=== PATIENT | female | born 1965 | race Caucasian/White ===

== ENCOUNTER 2017-01-30 09:01 | Day surgery (SDC) | payer BC ==
[~2017-01-30] VITALS: Ht 157.5 cm; Wt 92.3 kg
[~2017-01-30 09:01] MED LIST: IBUP200C11 PO; NAPR250T PO; [UNRECOGNIZED DRUG - OTHER]
[2017-01-30 09:46] VITALS: Ht 157.5 cm; Wt 92.3 kg
[2017-01-30] MEDS ORDERED: BENTYL (10:10)
[2017-01-30] MEDS ORDERED: NORCO PO (10:10)
[2017-01-30] MEDS ORDERED: IBUPROFEN PO (10:10)
[2017-01-30] MEDS ORDERED: OMEP20CA16 PO (10:10)
[2017-01-30] MEDS ORDERED: METF500T4 PO (10:10)
[2017-01-30] MEDS ORDERED: VALS40TA2 PO (10:10)
[2017-01-30 10:13] VITALS: BP 134/93; PULSE 78; RESP 12
--- NOTE | 2017-01-30 10:52 | OPPN ---
Date/Time of Note Date/Time of Note DATE: 01/30/17 TIME: 10:50 Operative Report Preoperative Diagnosis Change in bowel habit History of rectal bleeding Postoperative Diagnosis Small sigmoid colon polyp was removed Internal hemorrhoids Operation/Procedure Performed Colonoscopy and biopsy Surgeon see signature line assistant controller None Anesthesia: MAC Estimated blood loss: none Transfusion Required none Specimen Sigmoid colon polyp biopsy Grafts/Implants none Complications none VANDANA NORMAN MD Jan 30, 2017 10:52
--- NOTE | 2017-01-30 11:12 | GILP ---
DATE OF PROCEDURE: 01/31/2017 PROCEDURE PERFORMED: Colonoscopy and biopsy. SURGEON: Cresencio Owens MD. PREOPERATIVE DIAGNOSIS: 1. Change in bowel habits. 2. History of colon polyps. 3. History of rectal bleeding. POSTOPERATIVE DIAGNOSES: 1. Colonoscopy all the way to the cecum. 2. Small sigmoid colon polyp was removed using biopsy forceps. 3. Internal hemorrhoids. INDICATION: Ms. Megan Arguello is a 51-year-old female patient who noticed change in the bowel habit with occasional rectal bleeding. The patient had a history of colon polyps. The patient was scheduled for colonoscopy for further evaluation. The procedure and possible complications were well explained to the patient. She understood and consented to the procedure. DESCRIPTION OF PROCEDURE: Under the influence of anesthesia, the colonoscope was carefully introduced the rectum. Under the direct vision, it was advanced all the way to the cecum. FINDINGS: The patient had a small sigmoid colon polyp and it was removed using biopsy forceps. She had internal hemorrhoids. She tolerated the procedure very well, and there was no complication from the procedure. At the end of procedure, she was awake with stable vital signs and she was discharged home in the care of her family. IMPRESSION: Please see postoperative diagnosis. PLAN: 1. High-fiber diet. 2. Next screening colonoscopy in 10 years. Dictated By: MD RAJ Sierra/[email or web address]/[email or web address] /Document#: [id number]
[2017-01-30 11:14] VITALS: BP 126/75; RESP 14
--- NOTE | 2017-02-01 13:18 | CONS ---
PATIENT NAME: MEGAN LYNCH DATE OF ADMISSION: 10/21/2016 DATE OF CONSULTATION: 01/01/[address] Gomez: Thank you very much for this kind referral. Ms. Megan Lynch is a 51-year-old female patient who was referred to me for further evaluation of change in bowel habits with occasional rectal bleeding. The patient also complains of lower abdominal pain. She has a history of colon polyps. The patient had been taking Bentyl without relief of symptoms. The patient also has history of gastritis and she is on omeprazole. She has been taking ibuprofen and Vale for degenerative joint disease of the spine. No history of gallstones. She has a history of fatty liver. She is hypertensive. She has diabetes. No history of heart disease, lung problem, or kidney disease. She is status post hysterectomy. Nonsmoker. No alcohol abuse. No family history of gastrointestinal tract neoplasm. ALLERGIES: NO DRUG ALLERGIES. MEDICATION: 1. Valsartan. 2. Metformin. 3. Bentyl. 4. Omeprazole. 5. Vale. 6. Ibuprofen. PHYSICAL EXAMINATION: VITAL SIGNS: She is 5 feet 2 inches tall and weighs 206 pounds. HEART: Normal heart sounds. LUNGS: Clear. ABDOMEN: Soft. No masses. Normal bowel sounds. NEUROLOGIC: Normal neurological exam. IMPRESSION: 1. Change in bowel habits with occasional rectal bleeding associated with lower abdominal pain. 2. The patient has a history of colon polyps, gastritis and the patient is on omeprazole. 3. Fatty liver. 4. Hypertension. 5. Diabetes mellitus. 6. Degenerative joint disease of the spine and the patient is on ibuprofen and Vale. 7. Status post hysterectomy. 8. Obesity. PLAN: Colonoscopy for further evaluation. Because of the obesity with a short thick neck and history of Vale use, which makes her resistant to narcotics, she needs monitored anesthesia care for the procedure. The procedure and possible complications were well explained to the patient. She understands and consents to the procedure. I thank you once again. With warmest personal regards, Dictated By: MD RAJ Sierra/[email or web address]/[email or web address] /Document#: [id number]
== END 2017-01-30 15:30 | disposition home or self-care (01) ==
LOC: GIL 09:01
PROVIDERS: ATTEND Internal Medicine Gastroenterology
DX: K63.5 Polyp of colon (principal); K64.8 Other hemorrhoids; E11.9 Type 2 diabetes mellitus without complications; I10 Essential (primary) hypertension; Z79.84 Long term (current) use of oral hypoglycemic drugs; K76.0 Fatty (change of) liver, not elsewhere classified; M47.819 Spondylosis without myelopathy or radiculopathy, site unspecified; E78.5 Hyperlipidemia, unspecified; E66.9 Obesity, unspecified; Z68.37 Body mass index [BMI] 37.0-37.9, adult; Z90.710 Acquired absence of both cervix and uterus; Z87.19 Personal history of other diseases of the digestive system
CPT/HCPCS: 82962